=== PATIENT | male | born 2000 | race Caucasian/White ===

== ENCOUNTER 2024-09-30 08:46 | Outpatient (REF) | payer BC, SELFPAY ==
[2024-09-30 10:14] LABS: MANUAL DIFF FLAG NO
[2024-09-30 11:05] LABS: Basophils Percent Auto 0.4 % (0-2); Eosinophils Percent Auto 0.8 % (0-4); Hemoglobin 16.5 g/dl (14.0-18.0); Imm Gran Abs Auto 0.01 X10*3/uL (0.00-0.03); Imm Gran Pct Auto 0.2 % (0.0-0.4); Lymphocytes Absolute Auto 1.2 X10*3/uL (1.2-4.9); Mean Corpuscular HGB Conc 35.1 g/dl (31.0-36.0); Mean Corpuscular Hemoglobin 30.7 pg (27.0-33.0); Mean Corpuscular Volume 87.5 fL (80.0-98.0); Mean Platelet Volume 9.3 fL (9.4-12.4); Monocytes Absolute Auto 0.4 X10*3/uL (0.1-1.2); Monocytes Percent Auto 8.2 % (2-11); Neutrophils Absolute Auto 3.4 x10*3/uL (2.0-8.3); Neutrophils Percent Auto 67.4 % (45-73); Platelet Count 232 X10*3/uL (160-400); Red Blood Count 5.37 X10*6/uL (4.60-5.80); Red Cell Distribution Width 12.2 % (11.0-16.0)
[2024-09-30 11:48] LABS: Alanine Aminotransferase 33 U/L (0-40); Albumin Level 4.9 g/dL (3.5-5.0); Alkaline Phosphatase 51 U/L (39-117); Anion Gap 11 (12-20); Aspartate Amino Transferase 22 U/L (5-37); Bilirubin Total 0.7 mg/dL (0.0-1.0); Blood Urea Nitrogen 10 mg/dL (9-16); C Reactive Protein < 0.04 mg/dL (< or = 0.50); Calcium 9.7 mg/dL (8.4-10.2); Carbon Dioxide 28 mmol/L (22-29); Chloride 105 mmol/L (96-108); Estimated Glomerular Filt Rate > 60; Glucose Random 80 mg/dL (60-115); Potassium 3.7 mmol/L (3.3-5.1); Sodium 140 mmol/L (135-145); Total Protein 7.6 g/dL (6.5-8.0)
[2024-09-30 12:13] LABS: Ferritin 159 ng/mL (20-250); TSH reflex Free T4 1.47 uIU/mL (0.32-4.0)
[2024-09-30 12:15] LABS: Folate 9.4 ng/mL (> or = 4.0); Vitamin B12 246 pg/mL (200-900)
[2024-10-03 07:03] LABS: IgA 295 mg/dL (47-310); IgG 846 mg/dL (600-1640); IgM 169 mg/dL (50-300)
[2024-10-07 05:48] LABS: Transglutaminase Ab IgG <1.0 U/mL; Transglutaminase IgA <1.0 U/mL
== END 2024-09-30 08:47 | disposition home or self-care (01) ==
LOC: HO.LAB 08:46
PROVIDERS: PCP Internal Medicine; Visit Provider Internal Medicine Gastroenterology
DX: R10.33 Periumbilical pain (principal); K75.81 Nonalcoholic steatohepatitis (NASH); G89.29 Other chronic pain; Z91.018 Allergy to other foods
CPT/HCPCS: 36415; 80053; 82607; 82728; 82746; 82784; 84443; 85025; 86003; 86140; 86364

== ENCOUNTER 2024-09-30 08:46 | Outpatient (AMB) | payer BC, SELFPAY ==
--- NOTE | 2024-09-30 08:52 | A.OFFVIS_ITS ---
Vital Signs 09/30/24 08:54 Height 6 ft 3 in Weight 176 lb 5.917 oz BMI 22.0 BP 130/80 Blood Pressure Location Lt brachial Position Sitting Pulse 63 Intake Visit Reasons: Chronic Constipation Intake Note: Ganesh presents in the office as a new patient for chronic constipation. CC: He states that he is here today because he has been diagnosed with IBS about 6+ years ago. Colonoscopy was 3 years ago and does not remember where it was done. He states that he gets cramping and bloating in the abdomen - he states he has a loss of appetite with the stomach issues and being unable to have a BM. Compressed Gas Equipment Mechanic Required: No Allergies No Known Allergies Allergy (Verified 09/30/24 08:54) HPI HPI Chronic Constipation: Details: HPI 24 yr old m here for assessment He has issues with IBS for 6-7 yrs He has abdominal pain cristy umbilical can be severe at times appettite is not that good sx worse with food he has fatigue and low energy He has not had normal stools for years he has noted blood and irritation he has incompelete evacuation He tried bentyl and reduced sx 90% He had colonsocopy 2021 -normal ROS: Constitutional : No Weight loss, No Fever, No Chills ENT/Mouth : No sore throat, No Rhinorrhea Eyes: No Swelling, No Redness Cardiovascular : No Chest Pain, No SOB, No Edema Respiratory : No Cough, No Sputum, No Wheezing Gastrointestinal : see HPI Genitourinary : NO Dysuria, No Urinary Frequency, No Hematuria, No Urgency Musculoskeletal : + joint pain, No Myalgias, No Joint Swelling Skin : No Skin Lesions, No rash Neuro : No Weakness, No Numbness, No Dizziness, No Headache Psych : No Anxiety/Panic, No Depression Heme/Lymph: No Bruising, No Lymphadenopathy Endocrine : No Polyuria, No Polydipsia All other systems reviewed and are negative. 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 VITAL SIGNS:see workflow HEENT: Nonicteric sclerae, PERRLA, EOMI. Oropharynx clear. Moist mucous mem branes. Conjunctivae appear well perfused. No thyroid mass. CHEST: Chest wall is nontender. HEART: Regular rate and rhythm without murmurs. LUNGS: Clear to auscultation bilaterally. ABDOMEN: Soft, positive bowel sounds, nontender, no organomegaly.no flank tenderness SKIN: No rash, no excessive bruising, petechiae, or purpura. NEUROLOGIC: Cranial nerves II-XII intact without motor/sensory deficit. Psych: normal affect A/P: 1/ Cristy umbilical pain, ?small bowel pathology, e.g IBD, small bowel enteropathy, infiltrative disease PLAN: 1/ CTe 2/ labs incl fecal lactoferrin, RAST, celiac 3/ might need VCE or repeat colo wtih EGD 4/ trial of levsin [facility] Surgical History (Updated 09/30/24 @ 08:55 by MAC Wang) Hx of colonoscopy Physical Exam Vital Signs: Last Vital Signs Pulse 63 09/30/24 08:54 BP 130/80 09/30/24 08:54 BMI result Body Mass Index 22.0 Assessment & Plan Assessment & Plan (1) Periumbilical abdominal pain: Code(s): R10.33 - Periumbilical pain Category: Medical Plan: see above Orders: Orders Lactoferrin, Fecal, Quant. Today K51.50 - Left sided colitis without complications, R10.33 - Periumbilical pain C Reactive Protein Today R10.33 - Periumbilical pain Ferritin Today R10.33 - Periumbilical pain Immunoglobulins,IgG IgA IgM Today R10.33 - Periumbilical pain CT enterography Today R10.33 - Periumbilical pain Complete Blood Count Auto Diff Today R10.33 - Periumbilical pain Comprehensive Met. Panel Today K75.81 - Nonalcoholic steatohepatitis (FORBES), R10.33 - Periumbilical pain Vitamin B12 and Folate Today R10.33 - Periumbilical pain Rast Allergen Today R10.33 - Periumbilical pain, Z91.018 - Allergy to other foods Medications: New hyoscyamine sulfate 0.125 mg PO BID-QID PRN 60 tabs 0RF dyspepsia Coding Level of Care Code New Pt Level 4 (00023) Diagnoses Periumbilical abdominal pain R10.33
[2024-09-30 08:54] VITALS: BP 130/80; PULSE 63; BMI 22.0
== END 2024-09-30 09:30 | disposition home or self-care (01) ==
PROVIDERS: PCP Pediatrics; Visit Provider Internal Medicine Gastroenterology
DX: R10.33 Periumbilical pain (principal)
CPT/HCPCS: 99204

== ENCOUNTER 2024-11-19 10:18 | Outpatient (REF) | payer BC, SELFPAY ==
--- OUTSIDE RECORDS SUMMARY | 2024-11-19 10:20 | XMS_ITS | Encounter Summary ---
Author Organization [facility] Address [address] [place] [address] Phone Care Team Providers Care Director Financial Services Name Role Phone Unavailable Primary Care Provider Unavailabl e Encounter Details Date Type Department Care Team (Late st Contact Info) Description 05/15/2015 Documentation [facility] [place] [address] [place] [address] Family Medicine, Physician [address] [place], [place] [phone] Social History Tobacco Use Types Packs/Day Years Used Date Smoking Tobacco: Never Assessed Sex and Gender Information Value Date Recorded Sex Assigned at Not on file Legal Sex Male 5:02 PM EDT Gender Identity Not on file Sexual Orientation Not on file documented as of this encounter Plan of Treatment Not on file documented as of this encounter Visit Diagnoses Not on filedocumented in this encounter
--- OUTSIDE RECORDS SUMMARY | 2024-11-19 10:20 | XMS_ITS | Encounter Summary ---
Author Organization [facility] Address [address] [place] [address] Phone Care Team Providers Care Ancillary Services Manager Therapy Name Role Phone Unavailable Primary Care Provider Unavailabl e Encounter Details Date Type Department Care Team (Late st Contact Info) Description 05/15/2015 Documentation [facility] [place] Family Medicine [address] [place] [address] Family Medicine, Physician [address] [place], [place] [phone] Social History Tobacco Use Types Packs/Day Years [...]
--- OUTSIDE RECORDS SUMMARY | 2024-11-19 10:20 | XMS_ITS | Encounter Summary ---
Author Organization [facility] Address [address] [place] [address] Phone Care Team Providers Care Emergency Department Director Name Role Phone Unavailable Primary Care Provider Unavailabl e Encounter Details Date Type Department Care Team (Late st Contact Info) Description 05/06/2013 Documentation [facility] [place] [address] [place] [address] Family Medicine, Physician [address], [place] [phone] Social History Tobacco Use Types Packs/Day Years [...]
--- OUTSIDE RECORDS SUMMARY | 2024-11-19 10:20 | XMS_ITS | Encounter Summary ---
Author Organization [facility] Address [address] [place] [address] Phone Care Team Providers Care Textile Cutting Machine Operator Name Role Phone Unavailable Primary Care Provider Unavailabl e Encounter Details Date Type Department Care Team (Late st Contact Info) Description 05/10/2012 Documentation [facility] [place] [address] [place] [address] Family Medicine, Physician [address] [place], [place] [phone] Social History Tobacco Use Types Packs/Day Years [...]
--- OUTSIDE RECORDS SUMMARY | 2024-11-19 10:20 | XMS_ITS | Clinical Summary ---
Author Organization [facility] Address [address] [place] [address] Phone Care Team Providers Care Team Supervisor Name Role Phone Unavailable Primary Care Provider Unavailabl e Allergies No known active allergies Medications No known medications Active Problems Problem Noted Date Diagnosed Date Mass of scalp 05/04/2019 Overview (05/04/2019): 2 small firm peas size nodules on scalp - one ant right frontal scalp and 1 mid parietal left scalp. Non tender. Pt has noted for a few years and they have not changed. Will continue to follow Resolved Problems Problem Noted Date Diagnosed Date Resolved Date Tinea versicolor 06/01/2017 05/04/2019 Immunizations Immunization Administration Dates Next Due DTaP 5 05/04/2002, 9,1998,09/04,1998 HPV Vaccine 9 Valent 05/29/2016,11/22/2015 HPV, Quadrivalent 05/14/2015 Hep A, ped/adol 11/22/2015,05/14/2015 Hep B, ped/adol 02/05/1999,1998,1998 Hib (PRP-T) 08/08/1999,1998,1998 IPV 05/04/2002 Influenza, injectable, quadr ivalent, preservative free 05/29/2016 Influenza, intranasal, trivalent 08/22/2010 MMR 05/04/2002,05/02/1999 Meningococcal B Trumenba 05/04/2019 Meningococcal Conj (Menactra) MCV4P 05/29/2016,0 05/05/2013 OPV 05/02/1999,1998,1998 Td (adult) (MBL), 2 Lf tetan us toxoid, PF, adsorbed 05/04/2019 Tdap 03/21/2010 Varicella 12/11/2008,04/30/2000 Family History Medical History Relation Name Comments No Known Problems Father Johana Colon cancer Maternal Grandfather Alzheimer's disease Maternal Grandmother No Known Problems Sister Marlin Relation Name Status Comments Father Johana Father: Alive a nd well Maternal Grandfather Materna l grandfather: Cancer, colon Maternal Grandmother Materna l grandmother: Alzheimer's Disease, Deafness Mother Mother: bicuspi d aortic valve Sister Marlin Sister: Alive a nd well Social History Tobacco Use Types Packs/Day Years Used Date Smoking Tobacco: Never Smokeless Tobacco: Never Tobacco Cessation:Counseling Given: Yes Comments:Never smoker Alcohol Use Standard Drinks/Week Comments Yes 0 (1 standard drink = 0.6 oz pur e alcohol) occasionally Hunger/Food Answer Date Recorded No 05/04/2019 Stable Housing Answer Date Recorded No 10/07/2019 Transportation Concerns Answer Date Rec orded No 05/04/2019 Hazards in Home Answer Date Recorded No 05/04/2019 Financing Utilities Answer Date Recorde d No 05/04/2019 Safety at Home Answer Date Recorded No 05/04/2019 Outside Support Answer Date Recorded No 05/04/2019 Understanding Health Concerns Answer Da te Recorded No 05/04/2019 Financing Health Concerns Answer Date R ecorded No 05/04/2019 Missing School or Work Answer Date Álvaro rded No 05/04/2019 Sex and Gender Information Value Date Recorded Sex Assigned at Not on file Legal Sex Male 5:02 PM EDT Gender Identity Not on file Sexual Orientation Not on file Last Filed Vital Signs Vital Sign Reading Time Taken Comments Blood Pressure 129/77 05/04/2019 1:27 PM EDT Pulse 61 05/04/2019 1:27 PM EDT Temperature 36.9 ??C (98.5 ??F) 07/13/2018 2:23 PM ED T Respiratory Rate - - Oxygen Saturation - - Inhaled Oxygen Concentration - - Weight 88.4 kg (194 lb 12.8 oz) 05/04/2019 1:27 PM EDT Height 189.2 cm (6' 2.5 ) 05/04/2019 1:27 PM EDT Body Mass Index 24.68 05/04/2019 1:27 PM EDT Plan of Treatment Health Maintenance Due Date Last Done Comments Men B Vaccine (2 of 2 - Trumenba SCDM 2-dose series) 11/04/2019 05/04/2019 Influenza Vaccines (#1) 2024 05/29/2016, 08/22 COVID-19 Vaccine ( - season) 2024 DTaP,Tdap,and Td Vaccines (8 - Td or Tdap) 05/04/2029 05/04/2019, 03/21/2010, 05/04/2002, Additional history exists Hepatitis B Vaccines Completed 02/05/1999, 1998, 1998 HIB Vaccines Completed 08/08/1999, 10/06, 1998 IPV Vaccines Completed 05/04/2002, 04/05, 1998, Additional history exists MMR Vaccines Completed 05/04/2002, 05/02/1999 Varicella Vaccines Completed 12/11/2008, 04/30/2000 Hepatitis A Vaccines Completed 11/22/2015, 05/14/20 15 HPV Vaccines Completed 05/29/2016, 11/05, 05/14/2015 Meningococcal Vaccine Completed 05/29/2016, 013 Pneumococcal Vaccine Aged Out No long er eligible based on patient's age to complete this topic Insurance [facility] [employer]
--- OUTSIDE RECORDS SUMMARY | 2024-11-19 10:20 | XMS_ITS | Encounter Summary ---
Author Organization [facility] Address [address] [place] [address] Phone Care Team Providers Care Cupola Tender Helper Name Role Phone Unavailable Primary Care Provider Unavailabl e Encounter Details Date Type Department Care Team (Late st Contact Info) Description 05/30/2016 Documentation [facility] [place] [address] [place], [place] [phone] Family Medicine, Physician [address] [place], [place] [address] Social History Tobacco Use Types Packs/Day Years [...]
--- OUTSIDE RECORDS SUMMARY | 2024-11-19 10:20 | XMS_ITS | Encounter Summary ---
Author Organization [facility] Address [address] [place] [address] Phone Care Team Providers Care Crystal Calibrator Name Role Phone Unavailable Primary Care Provider Unavailabl e Encounter Details Date Type Department Care Team (Late st Contact Info) Description 05/21/2017 Conversion Encounter [facility] - [address] [address] Social History Tobacco Use Types Packs/Day Years [...]
--- OUTSIDE RECORDS SUMMARY | 2024-11-19 10:20 | XMS_ITS | Encounter Summary ---
Author Organization [facility] Address [address] [place] [address] Phone Care Team Providers Care Returned Goods Sorter Name Role Phone Unavailable Primary Care Provider Unavailabl e Encounter Details Date Type Department Care Team (Late st Contact Info) Description 05/30/2016 Documentation [facility] [place] Family [place] [address] [place], [place] [phone] Family Medicine, Physician [address] [place], [place] [address]881 Social History Tobacco Use Types Packs/Day Years [...]
--- OUTSIDE RECORDS SUMMARY | 2024-11-19 10:20 | XMS_ITS | Encounter Summary ---
Author Organization [facility] Address [address] [place] [address] Phone Care Team Providers Care Real Estate Associate Attorney Name Role Phone Unavailable Primary Care Provider Unavailabl e Encounter Details Date Type Department Care Team (Late st Contact Info) Description 06/02/2016 Documentation [facility] [place] [address] [place], [place] [phone] Family Medicine, Physician [address] [place], [place] [address] Social History Tobacco Use Types Packs/Day Years [...]
--- OUTSIDE RECORDS SUMMARY | 2024-11-19 10:20 | XMS_ITS | Encounter Summary ---
Author Organization [facility] Address [address] [place] [address] Phone Care Team Providers Care Senior Peoplesoft Developer Name Role Phone Unavailable Primary Care Provider Unavailabl e Encounter Details Date Type Department Care Team (Late st Contact Info) Description 05/10/2012 Documentation [facility] [place] [address] [place] [address] Family Medicine, Physician [address] [place], [place] [phone] Social History Tobacco Use Types Packs/Day Years [...]
--- OUTSIDE RECORDS SUMMARY | 2024-11-19 10:20 | XMS_ITS | Encounter Summary ---
Author Organization [facility] Address [address] [place] [address] Phone Care Team Providers Care Co Pilot Name Role Phone Unavailable Primary Care Provider Unavailabl e Encounter Details Date Type Department Care Team (Late st Contact Info) Description 05/06/2013 Documentation [facility] [place] [address] [place] [address] Family Medicine, Physician [address] [place], [place] [phone] Social History Tobacco Use Types Packs/Day Years [...]
--- OUTSIDE RECORDS SUMMARY | 2024-11-19 10:20 | XMS_ITS | Encounter Summary ---
Author Organization [facility] Address [address] [place] [address] Phone Care Team Providers Care Glass Cutter Helper Name Role Phone Unavailable Primary Care Provider Unavailabl e Encounter Details Date Type Department Care Team (Late st Contact Info) Description 05/06/2013 Documentation [facility] [place] Family Medicine [address] [place] [address] Family Medicine, Physician [address] [place], [place] [phone] Social History Tobacco Use Types Packs/Day Years [...]
--- OUTSIDE RECORDS SUMMARY | 2024-11-19 10:20 | XMS_ITS | Encounter Summary ---
Author Organization [facility] Address [address] [place] [address] Phone Care Team Providers Care Emergency Medical Service Coordinator Name Role Phone Unavailable Primary Care Provider Unavailabl e Encounter Details Date Type Department Care Team (Late st Contact Info) Description 11/23/2015 Documentation [facility] [place] [address], [place] [phone] Family Medicine, Physician [address] [place], [place] [phone] Social History Tobacco Use Types Packs/Day Years [...]
[2024-11-19 10:47] LABS: Appearance Urine Clear; Color Urine Yellow; Glucose Urine UA Negative (Negative); Leukocyte Esterase Urine Negative (Negative); Nitrite Urine Negative (Negative); Urine Blood Negative (Negative); Urine Ketones Negative (Negative); Urine Protein Negative (Neg-Trace)
[2024-11-25 21:17] LABS: Lactoferrin, Fecal, Quant. <6.25 mcg/mL (<7.25)
== END 2024-11-19 10:19 | disposition home or self-care (01) ==
LOC: HO.LAB 10:18
PROVIDERS: PCP Internal Medicine; Visit Provider Internal Medicine Gastroenterology
DX: R10.33 Periumbilical pain (principal); R30.0 Dysuria; K51.50 Left sided colitis without complications
CPT/HCPCS: 81003; 83631

== ENCOUNTER 2024-11-24 07:48 | Outpatient (AMB) | payer BC, SELFPAY ==
--- OUTSIDE RECORDS SUMMARY | 2024-11-24 07:50 | XMS_ITS | Encounter Summary ---
Author Organization [facility] Address [address] [place] [address] Phone Care Team Providers Care Web Analyst Name Role Phone Unavailable Primary Care Provider Unavailabl e Encounter Details Date Type Department Care Team (Late st Contact Info) Description 05/15/2015 [place]ation [facility] [place] [address] [place] [address] Family Medicine, Physician [address] [place], [place] [phone] Social History Tobacco Use Types Packs/Day Years [...]
--- OUTSIDE RECORDS SUMMARY | 2024-11-24 07:50 | XMS_ITS | Encounter Summary ---
Author Organization [facility] Address [address] [place] [address] Phone Care Team Providers Care Skylights Assembler Name Role Phone Unavailable Primary Care Provider Unavailabl e Encounter Details Date Type Department Care Team (Late st Contact Info) Description 05/06/2013 Documentation [facility] [place] [address] [place] [address] Family Medicine, Physician [address] [place], [place] [phone] Social History Tobacco Use Types Packs/Day Years [...]
--- OUTSIDE RECORDS SUMMARY | 2024-11-24 07:50 | XMS_ITS | Encounter Summary ---
Author Organization [facility] Address [address] [place] [address] Phone Care Team Providers Care Shift Leader Name Role Phone Unavailable Primary Care Provider Unavailabl e Encounter Details Date Type Department Care Team (Late st Contact Info) Description 05/21/2017 Conversion Encounter [facility] - [address] [address] Social History Tobacco Use Types Packs/Day Years [...]
--- OUTSIDE RECORDS SUMMARY | 2024-11-24 07:50 | XMS_ITS | Encounter Summary ---
Author Organization [facility] Address [address] [place] [address] Phone Care Team Providers Care Truck Driver Teamster Name Role Phone Unavailable Primary Care Provider Unavailabl e Encounter Details Date Type Department Care Team (Late st Contact Info) Description 05/06/2013 Documentation [facility] [place] Medicine [address] [place] [address] Family Medicine, Physician [address] [place], [place] [phone] Social History Tobacco Use Types Packs/Day Years [...]
--- OUTSIDE RECORDS SUMMARY | 2024-11-24 07:50 | XMS_ITS | Encounter Summary ---
Author Organization [facility] Address [address] [place] [address] Phone Care Team Providers Care Supervisor Pipe Manufacture Name Role Phone Unavailable Primary Care Provider Unavailabl e Encounter Details Date Type Department Care Team (Late st Contact Info) Description 05/06/2013 Documentation [facility] [place] Medicine [address] [place] [address] Family Medicine, Physician [address] [place], [place] [phone] Social History Tobacco Use Types Packs/Day Years [...]
--- OUTSIDE RECORDS SUMMARY | 2024-11-24 07:50 | XMS_ITS | Encounter Summary ---
Author Organization [facility] Address [address] [place] [address] Phone Care Team Providers Care Restaurant And Bar Manager Name Role Phone Unavailable Primary Care Provider Unavailabl e Encounter Details Date Type Department Care Team (Late st Contact Info) Description 05/15/2015 Documentation [facility] [place] [address] [place] [address] Family Medicine, Physician [address] [place], [place] [phone] Social History Tobacco Use Types Packs/Day Years [...]
--- OUTSIDE RECORDS SUMMARY | 2024-11-24 07:50 | XMS_ITS | Encounter Summary ---
Author Organization [facility] Address [address] [place] [address] Phone Care Team Providers Care Mail Handler Sorter Name Role Phone Unavailable Primary Care Provider Unavailabl e Encounter Details Date Type Department Care Team (Late st Contact Info) Description 05/15/2015 Documentation [facility] [place] [address] [place] [address] Family Medicine, Physician [address] [place], [place] [phone] Social History Tobacco Use Types Packs/Day Years [...]
--- OUTSIDE RECORDS SUMMARY | 2024-11-24 07:51 | XMS_ITS | Encounter Summary ---
Author Organization [facility] Address [address] [place] [address] Phone Care Team Providers Care Patch Finisher Name Role Phone Unavailable Primary Care Provider Unavailabl e Encounter Details Date Type Department Care Team (Late st Contact Info) Description 05/30/2016 Documentation [facility] [place] [address], [place] [phone] Family Medicine, Physician [address] [place], [place] [address]141 Social History Tobacco Use Types Packs/Day Years [...]
--- OUTSIDE RECORDS SUMMARY | 2024-11-24 07:51 | XMS_ITS | Encounter Summary ---
Author Organization [facility] Address [address] [place] [address] Phone Care Team Providers Care Furnace Clerk Name Role Phone Unavailable Primary Care Provider Unavailabl e Encounter Details Date Type Department Care Team (Late st Contact Info) Description 05/10/2012 Documentation [facility] [place] Family [place] [address] [place] [address] Family Medicine, Physician [address], [place] [phone] Social History Tobacco Use Types Packs/Day Years [...]
--- OUTSIDE RECORDS SUMMARY | 2024-11-24 07:51 | XMS_ITS | Encounter Summary ---
Author Organization [facility] Address [address] [place] [address] Phone Care Team Providers Care Rn Flight Name Role Phone Unavailable Primary Care Provider Unavailabl e Encounter Details Date Type Department Care Team (Late st Contact Info) Description 11/23/2015 [place]ation [facility] [place] [address], [place] [phone] Family Medicine, Physician [address] [place], [place] 340941 Social History Tobacco Use Types Packs/Day Years [...]
--- OUTSIDE RECORDS SUMMARY | 2024-11-24 07:51 | XMS_ITS | Encounter Summary ---
Author Organization [facility] Address [address] [place] [address] Phone Care Team Providers Care Residential Monitor Name Role Phone Unavailable Primary Care Provider Unavailabl e Encounter Details Date Type Department Care Team (Late st Contact Info) Description 06/02/2016 Documentation [facility] [place] [address] [place], [place] [phone] Family Medicine, Physician [address] [place], [place] 704141 Social History Tobacco Use Types Packs/Day Years [...]
--- OUTSIDE RECORDS SUMMARY | 2024-11-24 07:51 | XMS_ITS | Clinical Summary ---
Author Organization [facility] Address [address] [place] [address] Phone Care Team Providers Care Foundry Molder Name Role Phone Unavailable Primary Care Provider [...] patient's age to complete this topic Insurance [facility] [employer]
--- OUTSIDE RECORDS SUMMARY | 2024-11-24 07:51 | XMS_ITS | Encounter Summary ---
Author Organization [facility] Address [address] [place] [address] Phone Care Team Providers Care Billing Machine Operator Name Role Phone Unavailable Primary Care Provider Unavailabl e Encounter Details Date Type Department Care Team (Late st Contact Info) Description 05/10/2012 Documentation [facility] [place] [address] [place] [address] Family Medicine, Physician [address], [place] [phone] Social History Tobacco Use Types Packs/Day Years [...]
--- OUTSIDE RECORDS SUMMARY | 2024-11-24 07:51 | XMS_ITS | Encounter Summary ---
Author Organization [facility] Address [address] [place] [address] Phone Care Team Providers Care Flower Stripper Name Role Phone Unavailable Primary Care Provider Unavailabl e Encounter Details Date Type Department Care Team (Late st Contact Info) Description 05/30/2016 Documentation [facility] [place] [address], [place] [id number] Family Medicine, Physician [address] [place], [place] [phone] Social History Tobacco Use Types Packs/Day Years [...]
--- NOTE | 2024-12-01 16:18 | MHC.OFFVIS ---
Intake Visit Reasons: Capsule Endoscopy Allergies No Known Allergies Allergy (Verified 12/01/24 09:53) PFSH Surgical History Hx of colonoscopy Social History (Updated 12/01/24 @ 09:52 by Ashtyn Jones MA) Alcohol intake: current Comment: Rare Patient Tobacco Use Status: Never used Tobacco Office Procedures AMB Capsule Endoscopy Procedure Notes: Capsule Endoscopy: Date of Service:11/24/24 Indication: abdominal pain Findings: esophagitis noted. gastric mucosa with coarse texture and granularity. Duodenum entered at 34 min, inflammation and erythema noted in the mid small bowel to proximal ileum. cecum not seen Conclusion: enteritis and gastropathy consider trial of budesonide or mesalamine, PPI = repeat egd Capsule Endoscopy CPT Code: 15048 - Capsule Endoscopy Assessment & Plan Assessment & Plan (1) Periumbilical abdominal pain: Code(s): R10.33 - Periumbilical pain Category: Medical Plan: as above Coding Level of Care Code Procedure Only Diagnoses Periumbilical abdominal pain R10.33 CPT Codes AMB Capsule Endoscopy - Capsule Endoscopy CPT Code: 69475 - Capsule Endoscopy ([id number])
== END 2024-11-24 08:08 | disposition home or self-care (01) ==
PROVIDERS: PCP Internal Medicine; Visit Provider Internal Medicine Gastroenterology
DX: R10.33 Periumbilical pain (principal); K20.90 Esophagitis, unspecified without bleeding; K31.89 Other diseases of stomach and duodenum
CPT/HCPCS: 91110

== ENCOUNTER → 2024-11-24 07:48 | Outpatient (BNVA) | payer BC, SELFPAY | PROVIDERS: PCP Internal Medicine; Visit Provider Internal Medicine Gastroenterology | DX: R10.33 Periumbilical pain (principal) | CPT/HCPCS: 91110 ==

== ENCOUNTER 2024-12-01 09:46 | Outpatient (AMB) | payer BC, SELFPAY ==
--- NOTE | 2024-12-01 09:51 | HO.NEPHOV ---
Vital Signs 12/01/24 09:53 Height 6 ft 3 in Weight 194 lb 8 oz BMI 24.3 BP 122/80 Blood Pressure Location Lt brachial Position Sitting Intake Visit Reasons: INP: Polycystic kidney-Conf Mine Patrol Required: No Accompanied by: Self / Same As Patient Allergies No Known Allergies Allergy (Verified 12/01/24 09:53) HPI Comments Details: I had the pleasure of seeing Ganesh in consultation for cysts in both the kidneys and liver. He was seen by manager military for abdominal pain for which he underwent imaging studies which showed the cysts in both the kidneys as well as liver. He has no family history of PKD, proteinuria, renal dysfunction, hypertension, ESRD, renal stones or renal transplantation. Ganesh denied any hematuria, flank pain, pedal edema or hypertension. His renal functions have been normal and his blood pressure has been at goal. He feels well. [facility] Surgical History Hx of colonoscopy Social History (Updated 12/01/24 @ 09:52 by Ashtyn Jones MA) Alcohol intake: current Comment: Rare Patient Tobacco Use Status: Never used Tobacco Review of Systems Const All systems reviewed & are unremarkable except as noted in HPI and below Physical Exam Vital Signs: Last Vital Signs BP 122/80 12/01/24 09:53 BMI result Body Mass Index 24.3 Const General: comfortable and no acute distress Orientation/consciousness: patient oriented x3 HEENT Head: Yes normocephalic Mouth: Normal oral and palatal mucosa present Eyes EOM: EOMs intact bilaterally Neck Neck: Yes supple Resp Auscultation: clear to auscultation bilaterally Cardio Jugular venous distension: no JVD Rate: regular rate GI Palpation (GI): Soft to palpation Auscultation: normal bowel sounds General: Yes no CVA tenderness Back/Spine/Pelvis Back: no CVA tenderness Skin General skin exam: no rashes or lesions noted Neuro General: patient oriented x3 and moves all extremities Extrem General: Yes no pedal edema Results Reviewed Nephrology Results: Hgb 16.5 g/dl (14.0-18.0) 09/30/24 WBC 5.0 X10*3/uL (4.8-10.8) 09/30/24 Plt Count 232 X10*3/uL (160-400) 09/30/24 Sodium 140 mmol/L (135-145) 09/30/24 Potassium 3.7 mmol/L (3.3-5.1) 09/30/24 Chloride 105 mmol/L (96-108) 09/30/24 Carbon Dioxide 28 mmol/L (22-29) 09/30/24 BUN 10 mg/dL (9-16) 09/30/24 Creatinine 0.89 mg/dL (0.5-1.4) 09/30/24 Calcium 9.7 mg/dL (8.4-10.2) 09/30/24 Urine Protein Negative mg/dL (Neg-Trace) 11/19/24 Assessment & Plan Assessment & Plan (1) Polycystic kidney disease: Code(s): Q61.3 - Polycystic kidney, unspecified Category: Medical Plan Ganesh has PKD by imaging studies. He has cysts in the liver as well. He has no proteinuria, hypertension, hematuria, renal stones or renal dysfunction. He denied any family history of PKD. I ordered MRI of the kidneys. He will need gene testing as well as initiation of tolvaptan. If his blood pressure goes up order labs and proteinuria, he will be a candidate for GIGI inhibitor. He should maintain good hydration and will need follow-up imaging studies, blood work as well as urine studies for ongoing management of his PKD. Time spent during encounter, retrieving in reviewing all his previous images and documentation, encounter documentation and discussion included 53 minutes. Follow-up given Orders: Orders UA and rflx microscopic 6 Months Q61.3 - Polycystic kidney, unspecified Electrolytes 6 Months Q61.3 - Polycystic kidney, unspecified Creatinine 6 Months Q61.3 - Polycystic kidney, unspecified MR abd polycystic kid wo con Today Q61.3 - Polycystic kidney, unspecified Protein Creatinine Ratio, Ur 6 Months Q61.3 - Polycystic kidney, unspecified Blood Urea Nitrogen 6 Months Q61.3 - Polycystic kidney, unspecified Coding Level of Care Code New Pt Level 5 (40145) Diagnoses Polycystic kidney disease Q61.3
[2024-12-01 09:53] VITALS: BP 122/80; BMI 24.3
--- OUTSIDE RECORDS SUMMARY | 2024-12-01 11:12 | XMS_ITS | Encounter Summary ---
Author Organization [facility] Address [address] [place] [address] Phone Care Team Providers Care Motor Tune Up Specialist Name Role Phone Unavailable Primary Care Provider Unavailabl e Encounter Details Date Type Department Care Team (Late st Contact Info) Description 05/30/2016 Documentation [facility] [place] [address] [place], [place] [id number] Family Medicine, Physician [address] [place], [place] 563671 Social History Tobacco Use Types Packs/Day Years [...]
--- OUTSIDE RECORDS SUMMARY | 2024-12-01 11:12 | XMS_ITS | Encounter Summary ---
Author Organization [facility] Address [address] [place] [address] Phone Care Team Providers Care Documentation Spec Name Role Phone Unavailable Primary Care Provider Unavailabl e Encounter Details Date Type Department Care Team (Late st Contact Info) Description 05/10/2012 [place] [facility] [place] [address] [place] [address] Family Medicine, Physician [address] [place], [place] [phone] Social History Tobacco Use Types Packs/Day Years [...]
--- OUTSIDE RECORDS SUMMARY | 2024-12-01 11:12 | XMS_ITS | Encounter Summary ---
Author Organization [facility] Address [address] [place] [address] Phone Care Team Providers Care Food Service Tray Attendant Name Role Phone Unavailable Primary Care Provider Unavailabl e Encounter Details Date Type Department Care Team (Late st Contact Info) Description 05/30/2016 Documentation [facility] [place] Family Medicine [address], [place] [phone] Family Medicine, Physician [address] [place], [place] 943541 Social History Tobacco Use Types Packs/Day Years [...]
--- OUTSIDE RECORDS SUMMARY | 2024-12-01 11:12 | XMS_ITS | Encounter Summary ---
Author Organization [facility] Address [address] [place] [address] Phone Care Team Providers Care Entry Level Buyer Name Role Phone Unavailable Primary Care Provider Unavailabl e Encounter Details Date Type Department Care Team (Late st Contact Info) Description 05/06/2013 Documentation [facility] [place] Family Medicine [address] [place] [address] Family Medicine, Physician [address], [place] [phone] Social History Tobacco Use Types Packs/Day Years [...]
--- OUTSIDE RECORDS SUMMARY | 2024-12-01 11:12 | XMS_ITS | Encounter Summary ---
Author Organization [facility] Address [address] [place] [address] Phone Care Team Providers Care Milk Runner Name Role Phone Unavailable Primary Care Provider Unavailabl e Encounter Details Date Type Department Care Team (Late st Contact Info) Description 11/23/2015 Documentation [facility] [place] Family Medicine [address] [place], [place] [phone] Family Medicine, Physician [address] [place], [place] 908231 Social History Tobacco Use Types Packs/Day Years [...]
--- OUTSIDE RECORDS SUMMARY | 2024-12-01 11:12 | XMS_ITS | Encounter Summary ---
Author Organization [facility] Address [address] [place] [address] Phone Care Team Providers Care Clerk Operator Name Role Phone Unavailable Primary Care Provider Unavailabl e Encounter Details Date Type Department Care Team (Late st Contact Info) Description 05/21/2017 Conversion Encounter [facility] - [address] [address] Social History Tobacco Use Types Packs/Day Years [...]
--- OUTSIDE RECORDS SUMMARY | 2024-12-01 11:12 | XMS_ITS | Encounter Summary ---
Author Organization [facility] Address [address] [place] [address] Phone Care Team Providers Care Fisheries Officer Name Role Phone Unavailable Primary Care Provider Unavailabl e Encounter Details Date Type Department Care Team (Late st Contact Info) Description 05/15/2015 Documentation [facility] [place] Medicine [address] [place] [address] Family Medicine, Physician [address] [place], [place] [phone] Social History Tobacco Use Types Packs/Day Years [...]
--- OUTSIDE RECORDS SUMMARY | 2024-12-01 11:12 | XMS_ITS | Encounter Summary ---
Author Organization [facility] Address [address] [place] [address] Phone Care Team Providers Care Improvement Director Name Role Phone Unavailable Primary Care Provider Unavailabl e Encounter Details Date Type Department Care Team (Late st Contact Info) Description 06/02/2016 Documentation [facility] [place] [address] [place], [place] [phone] Family Medicine, Physician [address] [place], [place] 749871 Social History Tobacco Use Types Packs/Day Years [...]
--- OUTSIDE RECORDS SUMMARY | 2024-12-01 11:12 | XMS_ITS | Encounter Summary ---
Author Organization [facility] Address [address] [place] [address] Phone Care Team Providers Care Plsql Developer Name Role Phone Unavailable Primary Care Provider Unavailabl e Encounter Details Date Type Department Care Team (Late st Contact Info) Description 05/15/2015 Documentation [facility] Family Medicine [address] [place] [address] Family Medicine, Physician [address], [place] [phone] Social History Tobacco Use Types Packs/Day Years [...]
--- OUTSIDE RECORDS SUMMARY | 2024-12-01 11:12 | XMS_ITS | Encounter Summary ---
Author Organization [facility] Address [address] [place] [address] Phone Care Team Providers Care Cotton Dispatcher Name Role Phone Unavailable Primary Care Provider Unavailabl e Encounter Details Date Type Department Care Team (Late st Contact Info) Description 05/15/2015 Documentation [facility] [place] Family Medicine [address] [place] [address] Family Medicine, Physician [address], [place] [phone] Social History Tobacco Use Types Packs/Day Years [...]
--- OUTSIDE RECORDS SUMMARY | 2024-12-01 11:12 | XMS_ITS | Clinical Summary ---
Author Organization [facility] Address [address] [place] [address] Phone Care Team Providers Care Brand Recorder Name Role Phone Unavailable Primary Care Provider [...] patient's age to complete this topic Insurance [facility]
--- OUTSIDE RECORDS SUMMARY | 2024-12-01 11:12 | XMS_ITS | Encounter Summary ---
Author Organization [facility] Address [address] [place] [address] Phone Care Team Providers Care Vending Machine Filler Name Role Phone Unavailable Primary Care Provider Unavailabl e Encounter Details Date Type Department Care Team (Late st Contact Info) Description 05/06/2013 Documentation [facility] [facility] [place] [address] [place] [address] Family Medicine, Physician [address], [place] [phone] Social History Tobacco Use Types Packs/Day Years [...]
--- OUTSIDE RECORDS SUMMARY | 2024-12-01 11:12 | XMS_ITS | Encounter Summary ---
Author Organization [facility] Address [address] [place] [address] Phone Care Team Providers Care Puppet Engineer Name Role Phone Unavailable Primary Care Provider Unavailabl e Encounter Details Date Type Department Care Team (Late st Contact Info) Description 05/06/2013 Documentation [facility] [place] [address] [place] [address] Family Medicine, Physician [address] [place], [place] [phone] Social History Tobacco Use Types Packs/Day Years [...]
--- OUTSIDE RECORDS SUMMARY | 2024-12-01 11:12 | XMS_ITS | Encounter Summary ---
Author Organization [facility] Address [address] [place] [address] Phone Care Team Providers Care Radio Despatcher Name Role Phone Unavailable Primary Care Provider Unavailabl e Encounter Details Date Type Department Care Team (Late st Contact Info) Description 05/10/2012 Documentation [facility] [place] [address] [place] [address] Family Medicine, Physician [address] [place], [place] [phone] Social History Tobacco Use Types Packs/Day Years [...]
== END 2024-12-01 10:39 | disposition home or self-care (01) ==
PROVIDERS: PCP Internal Medicine; Referring Provider Internal Medicine Gastroenterology; Visit Provider Internal Medicine Nephrology
DX: Q61.3 Polycystic kidney, unspecified (principal)
CPT/HCPCS: 99204

== ENCOUNTER → 2024-12-01 09:46 | Outpatient (BNVA) | payer BC, SELFPAY | PROVIDERS: PCP Internal Medicine; Referring Provider Internal Medicine Gastroenterology; Visit Provider Internal Medicine Nephrology ==

== ENCOUNTER 2024-12-18 18:34 | Outpatient (REF) | payer BC, SELFPAY ==
--- NOTE | ~2024-12-18 | MR_ITS ---
EXAMINATION: MRI Abdomen without and with contrast HISTORY: Q61.3 - Polycystic kidney, unspecified COMPARISON: Correlation is made with a CT of the abdomen without and with contrast from [facility] dated 11/05/2024. TECHNIQUE: Axial in and out of phase T1-weighted gradient echo, coronal HASTE T2, and axial HASTE T2 with fat saturation images were obtained through the abdomen. FINDINGS: There are innumerable cysts in both kidneys measuring up to 1.5 cm on the right and 2.0 cm on the left. Evaluation for solid masses is limited by lack of intravenous contrast material. Several of the cysts demonstrate layering dependent fluid consistent with proteinaceous or hemorrhagic content. There is no hydronephrosis. There are innumerable tiny cysts within the liver. There is no significant signal loss within the liver on opposed phase imaging to suggest steatosis. There is no intra or extrahepatic biliary ductal dilatation. The gallbladder, spleen, pancreas, and adrenals are unremarkable on this unenhanced examination. No retroperitoneal lymphadenopathy or ascites in the upper abdomen. The visualized bones demonstrate normal signal intensity. MR/MR abd polycystic kid wo con IMPRESSION: Polycystic kidney and liver disease as described. Electronically signed by: Mark You MD 12/19/2024 07:54 AM EDT
--- OUTSIDE RECORDS SUMMARY | 2024-12-18 18:38 | XMS_ITS | Encounter Summary ---
Author Organization [facility] Address [address] [place] [address] Phone Care Team Providers Care Pool Finisher Name Role Phone Unavailable Primary Care Provider Unavailabl e Encounter Details Date Type Department Care Team (Late st Contact Info) Description 05/06/2013 Documentation [facility] [place] Medicine [address] [place] [address] Family Medicine, Physician [address], [place] [phone] Social History Tobacco Use Types Packs/Day Years [...]
--- OUTSIDE RECORDS SUMMARY | 2024-12-18 18:38 | XMS_ITS | Encounter Summary ---
Author Organization [facility] Address [address] [place] [address] Phone Care Team Providers Care Collateral Clerk Name Role Phone Unavailable Primary Care Provider Unavailabl e Encounter Details Date Type Department Care Team (Late st Contact Info) Description 05/30/2016 Documentation [facility] [place] [address] [place], [place] [phone] Family Medicine, Physician [address] [place], [place] 781811 Social History Tobacco Use Types Packs/Day Years [...]
--- OUTSIDE RECORDS SUMMARY | 2024-12-18 18:38 | XMS_ITS | Encounter Summary ---
Author Organization [facility] Address [address] [place] [address] Phone Care Team Providers Care Preschool Special Education Teacher Name Role Phone Unavailable Primary Care Provider Unavailabl e Encounter Details Date Type Department Care Team (Late st Contact Info) Description 05/06/2013 Documentation [facility] [place] [address] [place] [address] Family Medicine, Physician [address] [place], [place] [phone] Social History Tobacco Use Types Packs/Day Years [...]
--- OUTSIDE RECORDS SUMMARY | 2024-12-18 18:38 | XMS_ITS | Clinical Summary ---
Author Organization [facility] Address [address] [place] [address] Phone Care Team Providers Care Synchronizer Name Role Phone Unavailable Primary Care Provider [...] patient's age to complete this topic Insurance [facility]
--- OUTSIDE RECORDS SUMMARY | 2024-12-18 18:38 | XMS_ITS | Encounter Summary ---
Author Organization [facility] Address [address] [place] [address] Phone Care Team Providers Care Engineer Design And Construction Name Role Phone Unavailable Primary Care Provider Unavailabl e Encounter Details Date Type Department Care Team (Late st Contact Info) Description 05/15/2015 Documentation [facility] [place] [address] [place] [address] Family Medicine, Physician [address], [place] [phone] Social History Tobacco Use Types Packs/Day Years [...]
--- OUTSIDE RECORDS SUMMARY | 2024-12-18 18:38 | XMS_ITS | Encounter Summary ---
Author Organization [facility] Address [address] [place] [address] Phone Care Team Providers Care Shuttle Bus Driver Name Role Phone Unavailable Primary Care Provider Unavailabl e Encounter Details Date Type Department Care Team (Late st Contact Info) Description 05/21/2017 Conversion Encounter [facility] - [address] [address] Social History Tobacco Use Types Packs/Day Years [...]
--- OUTSIDE RECORDS SUMMARY | 2024-12-18 18:38 | XMS_ITS | Encounter Summary ---
Author Organization [facility] Address [address] [place] [address] Phone Care Team Providers Care Best Worker Name Role Phone Unavailable Primary Care Provider Unavailabl e Encounter Details Date Type Department Care Team (Late st Contact Info) Description 05/15/2015 Documentation [facility] [place] [address] [place] [address] Family Medicine, Physician [address] [place], [place] [phone] Social History Tobacco Use Types Packs/Day Years [...]
--- OUTSIDE RECORDS SUMMARY | 2024-12-18 18:38 | XMS_ITS | Encounter Summary ---
Author Organization [facility] Address [address] [place] [address] Phone Care Team Providers Care Chronometer Assembler And Adjuster Name Role Phone Unavailable Primary Care Provider Unavailabl e Encounter Details Date Type Department Care Team (Late st Contact Info) Description 11/23/2015 Documentation [facility] [place] [address], [place] [phone] Family Medicine, Physician [address] [place], [place] 317031 Social History Tobacco Use Types Packs/Day Years [...]
--- OUTSIDE RECORDS SUMMARY | 2024-12-18 18:38 | XMS_ITS | Encounter Summary ---
Author Organization [facility] Address [address] [place] [address] Phone Care Team Providers Care Cargo Service Agent Name Role Phone Unavailable Primary Care Provider Unavailabl e Encounter Details Date Type Department Care Team (Late st Contact Info) Description 05/30/2016 [place] [facility] [place] [address], [place] [phone] Family Medicine, Physician [address] [place], [place] 183791 Social History Tobacco Use Types Packs/Day Years [...]
--- OUTSIDE RECORDS SUMMARY | 2024-12-18 18:38 | XMS_ITS | Encounter Summary ---
Author Organization [facility] Address [address] [place] [address] Phone Care Team Providers Care Small Parts Shaper Operator Name Role Phone Unavailable Primary Care Provider Unavailabl e Encounter Details Date Type Department Care Team (Late st Contact Info) Description 05/06/2013 Documentation [facility] [place] Family Medicine [address] [place] [address] Family Medicine, Physician [address], [place] [phone] Social History Tobacco Use Types Packs/Day Years [...]
--- OUTSIDE RECORDS SUMMARY | 2024-12-18 18:39 | XMS_ITS | Encounter Summary ---
Author Organization [facility] Address [address] [place] [address] Phone Care Team Providers Care Debt Management Counselor Name Role Phone Unavailable Primary Care Provider Unavailabl e Encounter Details Date Type Department Care Team (Late st Contact Info) Description 05/10/[address] [facility] [place] Family [place] [address] [place] [address] Family Medicine, Physician [address] [place], [place] [phone] Social History Tobacco Use Types Packs/Day Years [...]
--- OUTSIDE RECORDS SUMMARY | 2024-12-18 18:39 | XMS_ITS | Encounter Summary ---
Author Organization [facility] Address [address] [place] [address] Phone Care Team Providers Care Station Installer Name Role Phone Unavailable Primary Care Provider Unavailabl e Encounter Details Date Type Department Care Team (Late st Contact Info) Description 06/02/2016 Documentation [facility] [place] Family Medicine [address], [place] [phone] Family Medicine, Physician [address] [place], [place] 675781 Social History Tobacco Use Types Packs/Day Years [...]
--- OUTSIDE RECORDS SUMMARY | 2024-12-18 18:39 | XMS_ITS | Encounter Summary ---
Author Organization [facility] Address [address] [place] [address] Phone Care Team Providers Care Rotary Soil Stabilizer Name Role Phone Unavailable Primary Care Provider Unavailabl e Encounter Details Date Type Department Care Team (Late st Contact Info) Description 05/10/2012 Documentation [facility] [place] [address] [place] [address] Family Medicine, Physician [address], [place] [phone] Social History Tobacco Use Types Packs/Day Years [...]
== END 2024-12-18 18:35 | disposition home or self-care (01) ==
LOC: HO.MRI 18:34
PROVIDERS: Visit Provider Internal Medicine Nephrology
DX: Q61.3 Polycystic kidney, unspecified (principal)
CPT/HCPCS: 74181

== ENCOUNTER → 2024-12-18 18:39 | Outpatient (BNV) | payer BC, SELFPAY | PROVIDERS: Visit Provider Radiology Diagnostic Radiology | DX: Q61.3 Polycystic kidney, unspecified (principal); Q44.6 Cystic disease of liver | CPT/HCPCS: 74181 ==

== ENCOUNTER 2025-01-26 07:38 | Day surgery (SDC) | payer BC, SELFPAY ==
--- OUTSIDE RECORDS SUMMARY | 2025-01-10 15:12 | XMS_ITS | Encounter Summary ---
Author Organization [facility] Address [address] [place] [address] Phone Care Team Providers Care Therapy Technician Name Role Phone Unavailable Primary Care Provider Unavailabl e Encounter Details Date Type Department Care Team (Late st Contact Info) Description 05/06/2013 Documentation [facility] [place] [address] [place] [address] Family Medicine, Physician [address], [place] [phone] Social History Tobacco Use Types Packs/Day Years [...]
--- OUTSIDE RECORDS SUMMARY | 2025-01-10 15:12 | XMS_ITS | Encounter Summary ---
Author Organization [facility] Address [address] [place] [address] Phone Care Team Providers Care Slitting Machine Operator Name Role Phone Unavailable Primary Care Provider Unavailabl e Encounter Details Date Type Department Care Team (Late st Contact Info) Description 05/15/2015 Documentation [facility] [place] [facility] [place] [address] [place] [address] Family Medicine, Physician [address] [place], [place] [phone] Social History Tobacco Use Types Packs/Day Years [...]
--- OUTSIDE RECORDS SUMMARY | 2025-01-10 15:12 | XMS_ITS | Encounter Summary ---
Author Organization [facility] Address [address] [place] [address] Phone Care Team Providers Care Assistant Media Planner Name Role Phone Unavailable Primary Care Provider Unavailabl e Encounter Details Date Type Department Care Team (Late st Contact Info) Description 05/15/2015 Documentation [facility] [place] [address] [place] [address] Family Medicine, Physician [address] [place], [place] [phone] Social History Tobacco Use Types Packs/Day Years [...]
--- OUTSIDE RECORDS SUMMARY | 2025-01-10 15:12 | XMS_ITS | Encounter Summary ---
Author Organization [facility] Address [address] [place] [phone] Phone Care Team Providers Care Research/Program Director Name Role Phone Unavailable Primary Care Provider Unavailabl e Encounter Details Date Type Department Care Team (Late st Contact Info) Description 05/15/2015 Documentation [facility] [place] [address] [place] [address] Family Medicine, Physician [address] [place] [place], [place] [phone] Social History Tobacco Use Types Packs/Day Years [...]
--- OUTSIDE RECORDS SUMMARY | 2025-01-10 15:12 | XMS_ITS | Encounter Summary ---
Author Organization [facility] Address [address] [place] [address] Phone Care Team Providers Care Skein Washer Name Role Phone Unavailable Primary Care Provider Unavailabl e Encounter Details Date Type Department Care Team (Late st Contact Info) Description 05/06/2013 Documentation [facility] [place] [address] [place] [address] Family Medicine, Physician [address], [place] [phone] Social History Tobacco Use Types Packs/Day Years [...]
--- OUTSIDE RECORDS SUMMARY | 2025-01-10 15:12 | XMS_ITS | Encounter Summary ---
Author Organization [facility] Address [address] [place] [address] Phone Care Team Providers Care Brake Repairer Bus Name Role Phone Unavailable Primary Care Provider Unavailabl e Encounter Details Date Type Department Care Team (Late st Contact Info) Description 05/21/2017 Conversion Encounter [facility] - [address] [address] Social History Tobacco Use Types Packs/Day Years [...]
--- OUTSIDE RECORDS SUMMARY | 2025-01-10 15:13 | XMS_ITS | Encounter Summary ---
Author Organization [facility] Address [address] [place] [address] Phone Care Team Providers Care Vocational Adviser Name Role Phone Unavailable Primary Care Provider Unavailabl e Encounter Details Date Type Department Care Team (Late st Contact Info) Description 05/10/2012 Documentation [facility] [place] [address] [place] [address] Family Medicine, Physician [address] [place], [place] [phone] Social History Tobacco Use Types Packs/Day Years [...]
--- OUTSIDE RECORDS SUMMARY | 2025-01-10 15:13 | XMS_ITS | Encounter Summary ---
Author Organization [facility] Address [address] [place] [address] Phone Care Team Providers Care Swimming Pool Servicer Name Role Phone Unavailable Primary Care Provider Unavailabl e Encounter Details Date Type Department Care Team (Late st Contact Info) Description 05/30/2016 Documentation [facility] [place] [address] [place], [place] [phone] Family Medicine, Physician [address] [place], [place] [phone] Social History Tobacco Use Types Packs/Day Years [...]
--- OUTSIDE RECORDS SUMMARY | 2025-01-10 15:13 | XMS_ITS | Encounter Summary ---
Author Organization [facility] Address [address] [place] [phone] Phone Care Team Providers Care Senior Formulation Scientist Name Role Phone Unavailable Primary Care Provider Unavailabl e Encounter Details Date Type Department Care Team (Late st Contact Info) Description 05/30/2016 Documentation [facility] [place] [address], [place] [phone] Family Medicine, Physician [address] [place], [place] [phone] Social History Tobacco Use Types Packs/Day Years [...]
--- OUTSIDE RECORDS SUMMARY | 2025-01-10 15:13 | XMS_ITS | Encounter Summary ---
Author Organization [facility] Address [address] [place] [address] Phone Care Team Providers Care Chief Of Safety And Protection Name Role Phone Unavailable Primary Care Provider Unavailabl e Encounter Details Date Type Department Care Team (Late st Contact Info) Description 05/06/2013 Documentation [facility] [place] [address] [place] [address] Family Medicine, Physician [address], [place] [phone] Social History Tobacco Use Types Packs/Day Years [...]
--- OUTSIDE RECORDS SUMMARY | 2025-01-10 15:13 | XMS_ITS | Encounter Summary ---
Author Organization [facility] Address [address] [place] [address] Phone Care Team Providers Care Ditch Worker Name Role Phone Unavailable Primary Care Provider Unavailabl e Encounter Details Date Type Department Care Team (Late st Contact Info) Description 05/10/2012 Documentation [facility] [place] [address] [place] [address] Family Medicine, Physician [address] [place], [place] [phone] Social History Tobacco Use Types Packs/Day Years [...]
--- OUTSIDE RECORDS SUMMARY | 2025-01-10 15:13 | XMS_ITS | Encounter Summary ---
Author Organization [facility] Address [address] [place] [address] Phone Care Team Providers Care Medical Supervisor Name Role Phone Unavailable Primary Care Provider Unavailabl e Encounter Details Date Type Department Care Team (Late st Contact Info) Description 06/02/2016 Documentation [facility] [place] Medicine [address] [place], [place] [phone] Family Medicine, Physician [address] [place], [place] [phone] Social History Tobacco Use Types Packs/Day Years [...]
--- OUTSIDE RECORDS SUMMARY | 2025-01-10 15:13 | XMS_ITS | Encounter Summary ---
Author Organization [facility] Address [address] [place] [address] Phone Care Team Providers Care Brake Rider Name Role Phone Unavailable Primary Care Provider Unavailabl e Encounter Details Date Type Department Care Team (Late st Contact Info) Description 11/23/2015 Documentation [facility] [place] [address], [place] [phone] Family Medicine, Physician [address] [place], [place] [phone] Social History Tobacco Use Types Packs/Day Years [...]
--- OUTSIDE RECORDS SUMMARY | 2025-01-10 15:13 | XMS_ITS | Clinical Summary ---
Author Organization [facility] Address [address] [place] [address] Phone Care Team Providers Care Body Press Operator Name Role Phone Unavailable Primary Care [...] patient's age to complete this topic Insurance [facility]
[2025-01-24 14:06] VITALS: BMI 24.4
--- NOTE | 2025-01-25 09:48 | HO.ANESPROP2 ---
Documented by User: Audra Armstrong NP 01/25/25 09:48 HPI - Anesthesia Eval Consult details Narrative: 24yo M for Upper Endoscopy PMFSH Active Problems Active Problems: All Active Problems Polycystic kidney disease (Acute) Periumbilical abdominal pain (Acute) Past Medical History Medical History (Updated 01/24/25 @ 14:05 by Aurora Yu RN) Polycystic kidney disease Surgical History Surgical History Hx of colonoscopy Social History Social History (Updated 01/26/25 @ 09:14 by Jabier Valladares MD) Alcohol intake: current Comment: Rare Patient Tobacco Use Status: Never used Tobacco Meds Allergies Allergy/AdvReac Type Severity Reaction Status Date / Time No Known Allergies Allergy Verified 12/01/24 09:53 Home Medications ?Medication ?Instructions ?Recorded ?Confirmed ?Last Taken ?Type lactobacillus combination no.4 3 3,000 mmu cells PO DAILY 09/30/24 Unknown History billion cell capsule (Probiotic) Exam Height,Weight and Vital Signs: Height 6 ft 3 in Weight 88.451 kg Assessment and Plan Assessment Anesthesia Assessment: Chart Reviewed Documented by User: Jabier Valladares MD 01/26/25 09:18 PMFSH Past Medical History Medical History (Updated 01/24/25 @ 14:05 by Aurora Yu RN) Polycystic kidney disease Family History Family history of problems with anesthesia: No Surgical History Surgical History Hx of colonoscopy History of Problems with Anesthesia: No Social History Social History (Updated 01/26/25 @ 09:14 by Jabier Valladares MD) Alcohol intake: current Comment: Rare Patient Tobacco Use Status: Never used Tobacco Meds Allergies Allergy/AdvReac Type Severity Reaction Status Date / Time No Known Allergies Allergy Verified 12/01/24 09:53 Home Medications ?Medication ?Instructions ?Recorded ?Confirmed ?Last Taken ?Type lactobacillus combination no.4 3 3,000 mmu cells PO DAILY 09/30/24 Unknown History billion cell capsule (Probiotic) Exam Airway Mallampati Class: II TM Dist: >3cm Neck ROM: Full Loose/Missing/Broken Teeth: No Heart: ok Lungs: ok Assessment and Plan Assessment Anesthesia Assessment: Anesthesia Plan Discussed Final Anesthetic Review Family History of Problems with Anesthesia: No History of Problems with Anesthesia: No NPO: Yes ASA Class: II Final Preanesthetic Review: No Changes in Pt Med Stat, Meds/Allgs Chart Reviewed, Consent Obtained/Reviewed and Anes Risks/Benef Reviewed Patient Risk: Low Procedure Risk: Intermediate Anesthetic Plan Anesthetic Plan: Agree w/ Assess. and Plan and TIVA Disposition: Standard PACU
[2025-01-26 07:58] VITALS: BP 121/73; PULSE 69; RESP 14; TEMP 36.3; O2SAT 97
[2025-01-26] MEDS: Lactated Ringers 1,000 ML 100 ML IVCONT (08:02)
--- NOTE | 2025-01-26 08:21 | P.HPSUR_ITS ---
Pre-Procedural Eval Section A - 24 Hr Update-Section A only Date of Service: 01/26/25 Section B - Complete if H&P > 30 days Chief Complaint: Gastritis, unspecified, without bleeding Relevant Family History (Specify if Yes): No Relevant Social History: None Present Medications: see Short Stay Collaborative assessment Medical History: Significant History (polycystic kidney ) History of Previous Operations: No relevant previous surgery Allergies: Allergies Allergy/AdvReac Type Severity Reaction Status Date / Time No Known Allergies Allergy Verified 12/01/24 09:53 Review of Systems Sugical H&P ROS: Negative: Constitution, Cardiovascular, Respiratory, Neur ological, Psychiatric, Hem-Onc, Allergic/Immunologic, Gastrointestinal, Genitourinary, Musculoskeletal, Integumentary, Endocrine and Eyes/Ears/Nose/Throat Exam Surgical H&P Exam: Normal: HEENT, Normal: Heart, Normal: Lungs, Normal: Extremities, Normal: Abdomen, Normal: Skin and Normal: Neurological Plan Diagnosis/Plan: Unchanged I have reviewed the history and physical and performed a pertinent physical examination on my patient. No changes have occurred unless specified. Time Spent With Patient Time: Total time managing care of this patient today ____ minutes.
--- NOTE | 2025-01-26 09:18 | W.PM.OPN ---
Operative Note Operative Note Date of Service: 01/26/25 Narrative: Procedure Description: push enteroscopy Indication: enteritis Anesthesia: MAC Push enteroscopy Consent: Indications for the procedure and potential complications of bleeding, perforation, reaction to medications and missed diagnosis were discussed with the patient and informed consent was obtained. Instrument: Olympus pediatric scope Monitoring: Vital signs and clinical assessment, continuous EKG monitoring, Pulse oximetry, Carbon Dioxide monitoring and blood pressure monitoring were done throughout the procedure. Procedure: The patient was placed in the left lateral decubitis position and pre-procedure medications were administered and a bite block was placed. The endoscope was inserted into the mouth and advanced under direct vision to the jejunum A careful inspection was made as the upper endoscope was withdrawn including a retroflexed examination of the proximal stomach; Findings and interventions are described below. Findings: Larynx:normal Esophagus: GE junction at 42 cm, diaphragm hiatus at 42 cm, mild congestion and bogginess at GEJ, bx taken from here, distal and proximal esophagus Stomach: patchy erythema . Biopsies were obtained. Grade 2 flap valve on retroflexed examination of the cardia. Duodenum: Normal bulb and descending duodenum, jejunum: bx taken, mucosa with mild patchy erythema Intervention: Biopsies as noted above, Impression/Findings: gastritis esophagitis PLAN: cont with levsin as helps GERD precautions await bx results
[2025-01-26 09:25] VITALS: BP 117/69; PULSE 77; RESP 16; TEMP 36.2; O2SAT 98
[2025-01-26 09:40] VITALS: BP 124/82; PULSE 66; RESP 16; TEMP 496.6; TEMP 926; O2SAT 98
== END 2025-01-26 10:08 | disposition home or self-care (01) ==
PROVIDERS: PCP Internal Medicine; Visit Provider Internal Medicine Gastroenterology
PROC: 0DJ08ZZ Inspection of Upper Intestinal Tract, Via Natural or Artificial Opening Endoscopic (ICD-10-PCS; CPT 43235; principal; 2025-01-26 09:10)
DX: K29.70 Gastritis, unspecified, without bleeding (principal); K20.90 Esophagitis, unspecified without bleeding; K22.89 Other specified disease of esophagus; R10.33 Periumbilical pain; Q61.3 Polycystic kidney, unspecified
CPT/HCPCS: 43239; 88305; 88313; 88342; J2003; J2704; J3010

== ENCOUNTER → 2025-01-26 07:38 | Outpatient (BNV) | payer BC, SELFPAY | PROVIDERS: PCP Internal Medicine; Visit Provider Internal Medicine Gastroenterology | DX: K29.70 Gastritis, unspecified, without bleeding (principal); K20.90 Esophagitis, unspecified without bleeding; K52.9 Noninfective gastroenteritis and colitis, unspecified | CPT/HCPCS: 43239 ==

== ENCOUNTER 2025-03-20 11:47 | Outpatient (AMB) | payer BC, SELFPAY ==
--- NOTE | 2025-03-20 11:50 | MHC.OFFVIS ---
Vital Signs 03/20/25 11:53 Height 6 ft 3 in Weight 196 lb 3.382 oz BMI 24.5 BP 133/68 Blood Pressure Location Lt brachial Position Sitting Pulse 69 Intake Visit Reasons: s/p endoscopy Intake Note: Ganesh presents in the office as a follow up EGD. CC: States that he did not know reflux was a symptom - he is here today for results. Culinary Art Teacher Required: No Allergies No Known Allergies Allergy (Verified 03/20/25 11:50) HPI HPI s/p endoscopy: Details: 24 yr old m here for f/u RECAP: He has issues with IBS for 6-7 yrs He has abdominal pain cristy umbilical can be severe at times appettite is not that good sx worse with food he has fatigue and low energy He has not had normal stools for years he has noted blood and irritation he has incompelete evacuation He tried bentyl and reduced sx 90% He had colonsocopy 2021 -normal capsule: enteritis, gastropathy EGD: 01/26/25- gastritis, esophagitis, mild enteritis path: mild esophagitis CT with renal and liver cysts, 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 VITAL SIGNS:see workflow HEENT: Nonicteric sclerae, PERRLA, EOMI. Oropharynx clear. Moist mucous membranes. Conjunctivae appear well perfused. No thyroid mass. CHEST: Chest wall is nontender. HEART: Regular rate and rhythm without murmurs. LUNGS: Clear to auscultation bilaterally. ABDOMEN: Soft, positive bowel sounds, nontender, no organomegaly.no flank tenderness SKIN: No rash, no excessive bruising, petechiae, or purpura. NEUROLOGIC: Cranial nerves II-XII intact without motor/sensory deficit. Psych: normal affect A/P: 1/ Cristy umbilical pain, ?small bowel pathology, e.g IBD, small bowel enteropathy, infiltrative disease but nothing on path or imaging at this time, good results with levsin PLAN: 1/ discussed high fiber diet 2/ might repeat colo or CTe if worsening sx, 3/ cont levsin as needed 4/ f/u renal for ADPKD 5/ cont ppi for reflux PFSH Medical History Polycystic kidney disease Surgical History (Updated 03/20/25 @ 11:50 by MAC Wang) History of esophagogastroduodenoscopy (EGD) Hx of colonoscopy Social History Alcohol intake: current Comment: Rare Patient Tobacco Use Status: Never used Tobacco Physical Exam Vital Signs: Last Vital Signs Pulse 69 03/20/25 11:53 BP 133/68 03/20/25 11:53 BMI result Body Mass Index 24.5 Assessment & Plan Assessment & Plan (1) Periumbilical abdominal pain: Code(s): R10.33 - Periumbilical pain Category: Medical Plan: as above Medications: Refilled hyoscyamine sulfate 0.125 mg PO BID-QID 90 days PRN 360 tabs 6RF dyspepsia Discontinued esomeprazole magnesium Discontinued Reason: Patient no longer taking 20 mg PO DAILY 90 caps 2RF Coding Level of Care Code Est Pt Level 3 (37123) Diagnoses Periumbilical abdominal pain R10.33
[2025-03-20 11:53] VITALS: BP 133/68; PULSE 69; BMI 24.5
--- OUTSIDE RECORDS SUMMARY | 2025-03-20 13:22 | XMS_ITS | Encounter Summary ---
Author Organization [facility] Address [address] [place] [phone] Phone Care Team Providers Care Wine Steward Name Role Phone Unavailable Primary Care Provider Unavailabl e Encounter Details Date Type Department Care Team (Late st Contact Info) Description 05/15/2015 Documentation [facility] [place] Family Medicine [address] [place] [address] Family Medicine, Physician [address] [place], [place] [phone] Social History Tobacco Use Types Packs/Day Years [...]
== END 2025-03-20 12:55 | disposition home or self-care (01) ==
LOC: HO.HGI 11:48
PROVIDERS: PCP Internal Medicine; Visit Provider Internal Medicine Gastroenterology
DX: R10.33 Periumbilical pain (principal)
CPT/HCPCS: 99213